=== PATIENT | female | born 2000 | race Caucasian/White ===

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

== ENCOUNTER 2022-02-14 20:17 | Day surgery (SDCO) | payer OTHER ==
[~2022-02-14 20:17] MED LIST: BIRTH CONTROL PILL PO; CERTAGEN1 EACH PO; IRON325 M1 PO; PRENATAL FORMU1 EACH PO; VENTOLIN HFA IN18 GM INH; WELLBUTRIN XL150 MG PO
[2022-02-14 21:04] LABS: BASOPHIL 0.2 % (0-2); EOSINOPHIL 2.4 % (0-5); HCT 36.6 % (37.0-47.0); HGB 12.6 g/dl (12.5-16.0); LYMPHOCYTE 27.6 % (15-48); MCH 31.7 pg (25.0-31.0); MCHC 34.4 g/dL (32.0-36.0); MONOCYTE 8.9 % (0-12); MPV 12.9 fL (6.0-9.5); NEUTROPHIL 60.2 % (41-80); NRBC 0; PLT 103 K/uL (150-400); RBC 3.98 M/uL (4.20-5.40); WBC 10.2 K/uL (4.0-10.5)
[2022-02-14 21:05] LABS: BILIRUBIN NEGATIVE (NEGATIVE); BLOOD NEGATIVE Ery/uL (NEGATIVE); CLARITY CLEAR (CLEAR); COLOR YELLOW (YELLOW); GLUCOSE (U) NORMAL (NORMAL); LEUKOCYTES NEGATIVE Leu/uL (NEGATIVE); NITRITE NEGATIVE (NEGATIVE); PROTEIN NEGATIVE (NEGATIVE); SPECIFIC GRAVITY <=1.005 (1.001-1.030); UROBILINOGEN 0.2 mg/dL (0.2-1.0)
[2022-02-14 21:12] LABS: BACTERIA TRACE
[2022-02-14 21:36] LABS: ALBUMIN 2.8 g/dL (3.4-5.0); BILIRUBIN - TOTAL 0.2 mg/dL (0.2-1.0); BUN/CREAT RATIO (CALC) 13.5 RATIO; CREATININE 0.52 mg/dL (0.51-0.95); GLOBULIN (CALCULATION) 2.9 g/dL; POTASSIUM 3.7 mmol/L (3.5-5.1); TOTAL PROTEIN 5.7 g/dL (6.4-8.2)
[2022-02-14 22:09] LABS: URINE CREATININE 17.72 mg/dL (29.00-226.00)
[2022-02-14 22:10] LABS: PROTEIN:CREATININE 0.67 RATIO; URINE TOTAL PROTEIN-RANDOM < 11.9 mg/dL (<11.9)
[2022-02-15 06:58] LABS: BASOPHIL 0.4 % (0-2); EOSINOPHIL 2.9 % (0-5); HGB 12.3 g/dl (12.5-16.0); LYMPHOCYTE 28.3 % (15-48); MCH 31.5 pg (25.0-31.0); MCHC 34.2 g/dL (32.0-36.0); MCV 92.3 fL (78.0-100.0); MONOCYTE 10.6 % (0-12); MPV 13.4 fL (6.0-9.5); NRBC 0; PLT 98 K/uL (150-400); RDW 13.1 % (11.5-14.0); WBC 8.4 K/uL (4.0-10.5)
[2022-02-15 07:31] LABS: ALBUMIN 2.4 g/dL (3.4-5.0); BILIRUBIN - TOTAL 0.3 mg/dL (0.2-1.0); CREATININE 0.54 mg/dL (0.51-0.95); GLOBULIN (CALCULATION) 3.4 g/dL; POTASSIUM 3.8 mmol/L (3.5-5.1); TOTAL PROTEIN 5.8 g/dL (6.4-8.2)
== END 2022-02-15 08:33 | disposition home or self-care (01) ==
LOC: FER 20:17 → FOB 22:19
PROVIDERS: Emergency Medicine; ADMIT Obstetrics & Gynecology
DX: O99.891 Other specified diseases and conditions complicating pregnancy (principal); R10.11 Right upper quadrant pain; O99.213 Obesity complicating pregnancy, third trimester; E66.9 Obesity, unspecified; Z3A.36 36 weeks gestation of pregnancy; Z91.048 Other nonmedicinal substance allergy status
CPT/HCPCS: 36415; 80053; 81001; 82570; 83690; 84156; 85025; 99284; G0378